=== PATIENT | female | born 1955 | race Caucasian/White ===

== ENCOUNTER 2018-03-09 20:15 | Emergency (ER) | payer OTHER ==
--- NOTE | 2018-03-09 20:29 | ED MVC/FALL/TRAUMA COMPLAINT ---
History of Present Illness General Chief Complaint: Fall Stated Complaint: "FALL" Source: patient, family Exam Limitations: no limitations Vital Signs & Intake/Output Vital Signs & Intake/Output Vital Signs Date Time Temp Pulse Resp B/P B/P Pulse O2 O2 Flow FiO2 Mean Ox Delivery Rate 03/09 2303 96.5 89 18 141/63 98 Room Air 03/09 2206 97 Room Air 03/09 2019 89 24 138/94 97 Allergies Coded Allergies: naproxen (hives 03/09/18) Triage Note: per pt slipped in dog poop and fell striking rt arm 'its broke" occured 1829. denies headstrike or loc Triage Nurses Notes Reviewed? yes Onset: Abrupt Duration: hour(s): Timing: single episode today Severity: moderate Injuries/Fall Location: upper extremity Method of Injury: fall Loss of Consciousness: no loss of consciousness Modifying Factors: Worsens With: movement, palpation. Associated Symptoms: right arm pain HPI: 62 yo woman in prior good health presents after a fall. She shares that she slipped on the dog's droppings at home and landed on her right arm. "I heard a 'pop' and now I can't move my arm... it hurts mostly in my shoulder and upper arm." She notes no head injury, neck pain, facial pain. She is otherwise well. Past History Travel History Traveled to [place] past 21 day No Medical History Any Pertinent Medical History? see below for history Neurological: NONE EENT: NONE Cardiovascular: hypertension, CHOL Respiratory: NONE Gastrointestinal: NONE Hepatic: NONE Renal: NONE Musculoskeletal: NONE Psychiatric: NONE Endocrine: DM Surgical History Surgical History: none Psychosocial History What is your primary language Welsh Tobacco Use: Current Daily Use Daily Tobacco Use Amount/Type: Cigar or Pipe use daily Family History Hx Contributory? No Review of Systems Review of Systems Constitutional: Reports: no symptoms. Eyes: Reports: no symptoms. Ears, Nose, Throat, Mouth: Reports: no symptoms. Respiratory: Reports: no symptoms. Cardiovascular: Reports: no symptoms. Gastrointestinal/Abdominal: Reports: no symptoms. Genitourinary: Reports: no symptoms. Musculoskeletal: Reports: no symptoms. Skin: Reports: no symptoms. Neurological/Psychological: Reports: no symptoms. All Other Systems: Reviewed and Negative Physical Exam Physical Exam General Appearance: well developed/nourished, mild distress Head: atraumatic, normal appearance Eyes: Bilateral: normal appearance. Ears, Nose, Throat, Mouth: hearing grossly normal, moist mucous membrane Neck: normal inspection, supple, full range of motion Respiratory: normal breath sounds, chest non-tender, no respiratory distress, quiet respiration, lungs clear Cardiovascular: regular rate/rhythm Gastrointestinal: normal bowel sounds, soft, non-tender, obese Back: normal inspection Extremities: diffuse pain around right shoulder and right upper arm. diffuse swelling around right proximal humerus decreased ROM due to discomfort. 2+ distal pulses. right elbow and wrist with normal ROM, non tender. Neurologic/Psych: no motor/sensory deficits, awake, alert, oriented x 3 Skin: intact, normal color, warm/dry Core Measures ACS in differential dx? No CVA/TIA Diagnosis No Sepsis Present: No Sepsis Focused Exam Completed? No Progress Differential Diagnosis: ext injury Plan of Care: Orders Procedure Date/time Status PARTIAL THROMBOPLASTIN TIME 03/09 2208 Complete PROTHROMBIN TIME 03/09 2208 Complete COMPREHENSIVE METABOLIC PANEL 03/09 2208 Complete CBC WITHOUT DIFFERENTIAL 03/09 2208 Complete EKG 03/09 2208 Active Current Medications Sig/Camille Start time Last Medication Dose Stop Time Status Admin Morphine Sulfate 4 MG ONCE ONE 03/09 2030 CAN (Morphine) 03/09 2031 Morphine Sulfate 6 MG ONCE ONE 03/09 2030 CAN (MORPHINE SULFATE) 03/09 2031 Laboratory Tests 03/09/182208: Anion Gap 14, Estimated GFR > 60, BUN/Creatinine Ratio 16.7, Glucose 160 H, Calcium 9.6, Total Bilirubin 0.4, AST 43 H, ALT 42, Alkaline Phosphatase 70, Total Protein 7.4, Albumin 4.3, Globulin 3.1, Albumin/Globulin Ratio 1.4, PT 11.7, INR 1.07, APTT 38 H, CBC w Diff MAN DIFF ORDERED, RBC 4.37, MCV 89.8, MCH 29.6, MCHC 33.0, RDW 14.2, MPV 9.9, Gran % 91.4 H, Lymphocytes % 4.9 L, Monocytes % 3.3, Eosinophils % 0.3, Basophils % 0.1, Absolute Granulocytes 21.1 H, Segmented Neutrophils 82 H, Band Neutrophils 7 H, Absolute Lymphocytes 1.1 L, Lymphocytes 7 L, Monocytes 2, Absolute Monocytes 0.8 H, Eosinophils 1, Absolute Eosinophils 0.1, Basophils 1, Absolute Basophils 0, Platelet Estimate ADEQUATE, Normochromic RBCs VERIFIED Diagnostic Imaging: Viewed by Me: Radiology Read. Discussed w/RAD: Radiology Read. Radiology Impression: PATIENT: ANTHONY NEVES PRESENT AGE: 62 PATIENT ACCOUNT NO: [id number] : 56 LOCATION: [facility] ORDERING PHYSICIAN: Juan Jose Aquino MD SERVICE DATE: 03/09/18 EXAM TYPE: RAD - XRY-HUMERUS, RIGHT; XRY-SHOULDER COMPLETE-RIGHT EXAMINATION: RIGHT HUMERUS SERIES. RIGHT SHOULDER SERIES. CLINICAL INFORMATION: Right shoulder pain and arm pain after fall COMPARISON: None TECHNIQUE: AP and lateral views of the right humerus. Scapular Y, Grashey, and external rotation views of the right shoulder. FINDINGS: The right lung and ribs are normal. The right clavicle is intact. 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 The right humerus is fractured in 2 places. There is a comminuted fracture at the right humeral neck/proximal humerus with mild displacement and angulation. The right humeral head remains normally positioned with respect to the glenoid however. There is an additional fracture through the mid humerus with apex lateral angulation and moderate displacement, approximately one half shafts width. IMPRESSION: The right humerus is fractured in 2 places. There is a comminuted fracture at the right humeral neck/proximal humerus with mild displacement and angulation. There is an additional fracture through the mid humerus with apex lateral angulation and moderate displacement, approximately one half shafts width. DICTATED BY: Kingsley Ramos MD DATE/TIME DICTATED:03/09/182126 RETAIL MERCHANDISER:DINO DATE/TIME TRANSCRIBED:2126 CONFIDENTIAL, DO NOT COPY WITHOUT APPROPRIATE AUTHORIZATION. < Electronically signed in Other Vendor System> SIGNED BY: Kingsley Ramos MD 03/09/182142 Initial ED EKG: normal axis, normal intervals, normal p-waves, normal QRS complex, normal sinus rhythm Departure Departure Disposition: HOME OR SELF CARE Condition: Stable Clinical Impression Primary Impression: Comminuted fracture of humerus Departure Forms: Customer Survey General Discharge Information Comments 03/09/18, 22:50... discussed with dr. hernandez... due to complexity of fracture... pt merits transfer to [place]. 03/09/18, 23;41...discussed with dr. wood ([facility]) who accepts patient. Procedures Splinting Location: right shoulder/humerus Manual Alignment Performed: Yes Hand-Made Type: orthoglass Splint: posterior and sugar tong Splint Applied By: splint applied by me Pre-Proc Neuro Vasc Exam: normal Post-Proc Neuro Vasc Exam: normal Critical Care Note Critical Care Note Critical Care Time: 30-74 min
--- NOTE | 2018-03-09 21:43 | RADIOLOGY REPORT ---
EXAMINATION: RIGHT HUMERUS SERIES. RIGHT SHOULDER SERIES. CLINICAL INFORMATION: Right shoulder pain and arm pain after fall COMPARISON: None TECHNIQUE: AP and lateral views of the right humerus. Scapular Y, Grashey, and external rotation views of the right shoulder. FINDINGS: The right lung and ribs are normal. The right clavicle is intact. 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 The right humerus is fractured in 2 places. There is a comminuted fracture at the right humeral neck/proximal humerus with mild displacement and angulation. The right humeral head remains normally positioned with respect to the glenoid however. There is an additional fracture through the mid humerus with apex lateral angulation and moderate displacement, approximately one half shafts width. IMPRESSION: The right humerus is fractured in 2 places. There is a comminuted fracture at the right humeral neck/proximal humerus with mild displacement and angulation. There is an additional fracture through the mid humerus with apex lateral angulation and moderate displacement, approximately one half shafts width.
[2018-03-09 22:28] LABS: ABSOLUTE BASOPHIL COUNT 0 /CUMM (0.0-0.2); ABSOLUTE EOSINOPHIL COUNT 0.1 /CUMM (0.0-0.7); ABSOLUTE GRANULOCYTE CT 21.1 /CUMM (1.4-6.5); ABSOLUTE LYMPH COUNT 1.1 /CUMM (1.2-3.4); ABSOLUTE MONOCYTE COUNT 0.8 /CUMM (0.10-0.60); BASOPHIL % 0.1 % (0.0-2.0); EOSINOPHIL % 0.3 % (0-5); GRANULOCYTE % 91.4 % (42.2-75.2); HEMATOCRIT 39.3 % (37-47); MEAN CORPUSCULAR HGB 29.6 PG (27.0-31.0); MEAN CORPUSCULAR VOLUME 89.8 FL (81.0-99.0); MEAN PLATELET VOLUME 9.9 FL (7.4-10.4); PLATELET COUNT 244 /CUMM (130-400); RBC DISTRIBUTION WIDTH 14.2 % (11.5-14.5); RED BLOOD CELL CT 4.37 /CUMM (4.20-5.40); WHITE BLOOD CELL COUNT 23.1 /CUMM (4.8-10.8)
[2018-03-09 22:45] LABS: PT 11.7 SEC (9.4-12.5); PTT 38 SEC (25-37)
[2018-03-09 23:03] VITALS: BP 141/63
--- NOTE | 2018-03-10 00:07 | RADIOLOGY REPORT ---
EXAMINATION: XR HUMERUS, RIGHT CLINICAL INFORMATION: Status post reduction and splint placement. COMPARISON: None TECHNIQUE: AP and lateral views of the right humerus. FINDINGS: There is redemonstration of the comminuted mid humeral diaphyseal fracture with prominent butterfly fragment. There is mild dorsal apex angulation which is decreased from the prior study with additional dorsal displacement of the distal fragment. Grossly maintained alignment at the shoulder and elbow. IMPRESSION: Comminuted mid humeral diaphyseal fracture with mildly improved alignment. Persistent displacement and angulation.
== END 2018-03-10 00:35 | disposition short-term general hospital (02) ==
LOC: ERH 20:15
PROVIDERS: Pediatrics
DX: S42.351A Displaced comminuted fracture of shaft of humerus, right arm, initial encounter for closed fracture (principal); W01.0XXA Fall on same level from slipping, tripping and stumbling without subsequent striking against object, initial encounter; Y93.01 Activity, walking, marching and hiking; Y92.009 Unspecified place in unspecified non-institutional (private) residence as the place of occurrence of the external cause
CPT/HCPCS: 73030-RT; 73060-RT; 93005; 93010; 96374; 96376